=== PATIENT | male | born 2000 | race Hispanic/Latino ===

== ENCOUNTER 2020-10-18 03:21 | Emergency (ER) | payer MEDICAID, OTHER | END 2020-10-18 04:45 | disposition home or self-care (01) | LOC: EDH 03:21 | DX: M72.0 Palmar fascial fibromatosis [Dupuytren] (principal); X58.XXXA Exposure to other specified factors, initial encounter; Y93.02 Activity, running; Y92.89 Other specified places as the place of occurrence of the external cause; Y99.8 Other external cause status ==

== ENCOUNTER 2022-12-09 06:03 | Emergency (ER) | payer OTHER ==
[2022-12-09 06:08] VITALS: BP 150/98
[2022-12-09] MEDS ORDERED: IBUP-1493 PO (06:21)
[2022-12-09] MEDS ORDERED: AMOX1TAB16 PO (06:21)
[2022-12-09] MEDS ORDERED: KETOROLAC 60 MG VIAL (30MG/ML) IM ONE ×2 (06:24→06:30)
[2022-12-09] MEDS ORDERED: AMOX/CLAV 875/125MG TAB PO ONE ×2 (06:24→06:30)
== END 2022-12-09 06:32 | disposition home or self-care (01) ==
LOC: EDH 06:03
DX: K04.7 Periapical abscess without sinus (principal)
CPT/HCPCS: 99283; 96372; J1885